=== PATIENT | male | born 1975 | race Caucasian/White ===

== ENCOUNTER 2025-04-23 11:23 | Inpatient (IN) | payer OTHER ==
[2025-04-23 11:38] VITALS: BMI 25.8
[2025-04-23] MEDS ORDERED: POLYETHYLENE GLYCOL (HEALTHYLAX) 3350 17 GM PACKET PO PRN (11:48)
[2025-04-23] MEDS ORDERED: DICYCLOMINE HCL 10 MG CAPSULE PO PRN (11:48)
[2025-04-23] MEDS ORDERED: NICOTINE POLACRILEX 2 MG LOZENGE BC PRN (11:48)
[2025-04-23] MEDS ORDERED: IBUPROFEN 600 MG TABLET (FP) PO PRN (11:48)
[2025-04-23] MEDS ORDERED: ONDANSETRON *ODT* 4 MG TABLET SL PRN (11:48)
[2025-04-23] MEDS ORDERED: MAGNESIUM HYDROX 2400MG/30ML ORAL SUSPENSION 30 ML CUP PO PRN (11:48)
[2025-04-23] MEDS ORDERED: MAG HYDROX/AL HYDROX/SIMETH 30 ML UNIT-DOSE CUP PO PRN (11:48)
[2025-04-23] MEDS ORDERED: NALOXONE (NARCAN) HCL 4 MG/0.1 ML SPRAY NS PRN (11:48)
[2025-04-23] MEDS ORDERED: hydrOXYzine PAMOATE 25 MG CAPSULE (FP) PO PRN (11:48)
[2025-04-23] MEDS ORDERED: guaiFENesin 600 MG TABLET.ER (FP) PO PRN (11:48)
[2025-04-23] MEDS ORDERED: BENZOCAINE/MENTHOL (CHLORASEPTIC ) LOZENGE MM PRN (11:48)
[2025-04-23] MEDS ORDERED: ACETAMINOPHEN 325 MG TABLET (FP) PO PRN (11:48)
[2025-04-23] MEDS ORDERED: METHOCARBAMOL 500 MG TABLET PO PRN (11:48)
[2025-04-23] MEDS ORDERED: IBUPROFEN 400 MG TABLET (FP) PO PRN (11:48)
[2025-04-23 16:17] LABS: HCV DIAGNOSTIC IN-HOUSE W/RFLX NON-REACTIVE (NONREACTIVE)
[2025-04-23 16:18] LABS: HIV INTERPRETATION NEGATIVE (NEGATIVE)
[2025-04-23] MEDS: LOPERAMIDE HCL 2 MG CAPSULE PO PRN (17:20)
[2025-04-23] MEDS: BENZONATATE 200 MG CAPSULE PO PRN (21:27)
[2025-04-23] MEDS: BISMUTH SUBSALICYLATE 524 MG/30 ML PO PRN (21:28)
[2025-04-23] MEDS: MELATONIN 5 MG TABLETS PO SCH (22:02)
[2025-04-23] MEDS: THIAMINE 100 MG TABLET PO SCH (22:03)
[2025-04-24] MEDS: PRENATAL VITAMINS W/ FOLIC ACID TABLET (FP) PO SCH (09:12)
[2025-04-24] MEDS ORDERED: LORazepam 1 MG TABLET PO PRN (09:45)
[2025-04-24] MEDS: LORazepam 2 MG TABLET PO SCH (10:15)
[2025-04-24] MEDS: NALTREXONE HCL 50 MG TABLET PO ONE (10:55)
[2025-04-24] MEDS: LORATADINE 10 MG TABLET PO SCH (10:55)
[2025-04-24 11:51] LABS: HEMATOCRIT 42.7 % (40.1-51.0); HEMOGLOBIN 13.7 g/dL (13.7-17.5); MCHC 32.1 g/dl (32.3-36.5); MEAN CELL VOLUME 85.4 fl (79.0-92.2); MEAN PLT VOLUME 11.8 fl (9.4-12.4); PLATELET COUNT 158 x10^3/uL (163-337); RDW 16.6 % (12.1-15.9)
[2025-04-24 12:19] LABS: CALCIUM 9.4 mg/dL (8.5-10.1)
[2025-04-24 12:20] LABS: BLOOD UREA NITROGEN 7.2 mg/dL (7-18)
[2025-04-24 12:23] LABS: CREATININE 0.7 mg/dL (0.55-1.3)
[2025-04-24 12:24] LABS: BILIRUBIN,TOTAL 0.6 mg/dL (0.2-1); TOT PROT 7.2 g/dl (6.4-8.2)
[2025-04-25 05:46] VITALS: RESP 16; TEMP 97.6
[2025-04-25] MEDS: NALTREXONE HCL 50 MG TABLET PO SCH (10:16)
[2025-04-25] MEDS: LORazepam 0.5 MG TABLET PO SCH (10:17)
[2025-04-25 11:14] VITALS: BP 108/74; PULSE 69
[2025-04-26] MEDS ORDERED: LORazepam 1 MG TABLET PO SCH (05:00)
[2025-04-26] MEDS ORDERED: LORazepam 0.5 MG TABLET PO SCH (06:00)
[2025-04-27] MEDS ORDERED: LORazepam 0.5 MG TABLET PO PRN
[2025-04-27] MEDS ORDERED: LORazepam 0.5 MG TABLET PO SCH (05:00)
[2025-04-27] MEDS ORDERED: LORazepam 0.5 MG TABLET PO ONE ×2 (05:00)
[2025-04-28] MEDS ORDERED: LORazepam 0.5 MG TABLET PO ONE (05:00)
== END 2025-04-25 11:38 | disposition home or self-care (01) | DRG 775 ==
LOC: YASAS 11:23 → Y6N 12:29
PROVIDERS: ADMIT Allergy & Immunology; ATTEND Allergy & Immunology
PROC: HZ2ZZZZ Detoxification Services for Substance Abuse Treatment (ICD-10-PCS; principal; 2025-04-23)
DX: F10.230 Alcohol dependence with withdrawal, uncomplicated (principal); F12.20 Cannabis dependence, uncomplicated; F17.210 Nicotine dependence, cigarettes, uncomplicated; F19.282 Other psychoactive substance dependence with psychoactive substance-induced sleep disorder; F32.A Depression, unspecified; J30.2 Other seasonal allergic rhinitis
CPT/HCPCS: 0241U-QW; 36415; 71046-TC-FY; 80053; 80305; 80307; 85027; 86780; 86803; 87389; 87811; 93005; 93010